=== PATIENT | female | born 1965 | race Caucasian/White ===

== ENCOUNTER 2019-03-23 08:22 | Day surgery (SDC) | payer OTHER ==
[2019-03-17 13:08] VITALS: BMI 23.5
[2019-03-23] MEDS ORDERED: oxyCODONE HCL 5 MG TABLET ONE (09:46)
--- NOTE | 2019-03-23 11:24 | HP ---
History & Physical Update - History History: No Change - Physical Physical: No Change - Assessment Assessment: No Change - Plan Plan: No Change
[2019-03-23] MEDS ORDERED: LIDOCAINE HCL 1% PRESERVATIVE FREE - 30ML VIAL ONE (11:29)
[2019-03-23] MEDS ORDERED: MIDAZOLAM HCL 2 MG/2 ML SINGLE DOSE VIAL ONE (11:33)
[2019-03-23] MEDS ORDERED: BUPIVACAINE HCL/PF 2.5 MG/ML - 30 ML VIAL IJ ONE (11:54)
[2019-03-23] MEDS ORDERED: LIDOCAINE 1%/EPI 1:100000 (20 ML MULTI DOSE VIAL) ONE (11:55)
[2019-03-23] MEDS ORDERED: LIDOCAINE 1%/EPI 1:100000 (20 ML MULTI DOSE VIAL) INF ONE (12:13)
[2019-03-23] MEDS ORDERED: ceFAZolin SODIUM 1 GM VIAL ONE (12:18)
[2019-03-23] MEDS ORDERED: GUM MASTIC/STORAX/MSAL/ALCOHOL 1 DRP DROPSBTL MC ONE (12:32)
[2019-03-23] MEDS ORDERED: BUPIVACAINE HCL/PF 0.25% (2.5MG/ML) 10 ML VIAL IJ ONE (12:47)
[2019-03-23] MEDS ORDERED: ONDANSETRON 4 MG/2 ML VIAL IVPUSH PRN (12:59)
[2019-03-23] MEDS ORDERED: oxyCODONE HCL 5 MG TABLET PO PRN (12:59)
--- NOTE | 2019-03-23 12:59 | OP ---
Operative Note - Note: Operative Date: 03/23/19 Pre-Operative Diagnosis: malfunctioning hardware Operation: replacement of spinal stimulator battery Surgeon: Pasquale Tyler Whip Operator: Tammie Shah Anesthesiologist/OIL LABORATORY ANALYST: Ernesto Trejo Anesthesia: Spinal Estimated Blood Loss (mls): 20 Fluid Volume Replaced (mls): 500 Operative Report Dictated: Yes
[2019-03-23] MEDS ORDERED: LACTATED RINGERS SOLUTION 1,000 ML IV SCH (13:00)
--- NOTE | 2019-03-23 13:00 | SURG ---
Surgery Camp Advisor Note Camp Advisor: Tammie Shah PA-C Date of Service: 03/23/19 Diagnosis: malfunctioning hardware Procedure: replacement of spinal stimulator battery I was present for the entirety of the operative procedure. For further detail, please refer to operative report. Visit type - Case Type Case Type: Scheduled - Emergency Emergency Visit: No - New patient This patient is new to me today: Yes Date on this admission: 03/23/19
[2019-03-23 14:33] VITALS: TEMP 97.7
[2019-03-23 15:08] VITALS: PULSE 60
[2019-03-23 15:55] VITALS: BP 101/68
--- NOTE | 2019-03-23 20:01 | OP ---
DATE OF OPERATION: 03/23/2019 PREOPERATIVE DIAGNOSIS: Painful hardware. POSTOPERATIVE DIAGNOSIS: Painful hardware. PROCEDURE PERFORMED: Removal and revision of spinal cord stimulator. SURGEON: Pasquale Tyler MD CARPENTER SHIP: ASHLEIGH Floyd ESTIMATED BLOOD LOSS: 50 mL. IV FLUID: As per Anesthesia. ANESTHESIA: Spinal. COMPLICATIONS: None. DISPOSITION: The patient was brought to the PACU in stable condition. INDICATION FOR SURGERY: The patient is a 53-year-old female who had a previous spinal cord stimulator. The battery did not work and she wanted revision of the battery. Risks, benefits, and alternatives discussed and the patient consented to surgery. OPERATIVE NOTE: The patient was brought to the operating room by the anesthesia staff. After appropriate patient identification was performed, spinal anesthesia was given. The patient was able to position herself prone onto the OR table. Her back was prepped and draped in a sterile manner. An incision was made over the battery on the right-hand side. Dissection was carried down to the battery. The battery was visualized and it was removed. The wire lead was disconnected from the battery. An slab lifting supervisor was placed onto the wire. This was tested and it was okay. It was attached to a pulse generator and that was tested, it was okay. The pulse generator was placed in the wound. The fascia was closed with 2-0 Vicryl suture, subcutaneous tissue closed with 2-0 Vicryl suture, the skin was closed with 3-0 Monocryl suture. Dermabond was applied, Steri-Strip was applied, sterile dressing was applied. The patient was placed supine on the OR bed, brought to the PACU in stable condition. Jany MANCERA/[id number]
--- NOTE | 2019-03-27 12:17 | PATH ---
Surgical Pathology Report Patient Name: JOHN HOLLY Med. Rec. #: [id number] /Age/Gender: 1965 (Age: 53) / F Account: [id number] Location: [facility] AMBUL[facility]ORY Taken: 03/23/2019 Received: 03/23/2019 Reported: 03/27/2019 Physicians: Pasquale Tyler M.D. Specimen(s) Received EXPLANT FROM PATIENT'S BACK Clinical History Painful hardware Final Diagnosis EXPLANT, BACK: ELECTRONIC EXPLANT, DESCRIBED (GROSS EXAMINATION ONLY). Electronically Signed Lyudmila Ramirez M.D. Gross Description Received fresh labeled "explant from patient's back," is a 5.2 x 5.2 x 0.7 cm pedersen metallic device. The specimen has the following inscription: "Likeability RestoreSensor SureScan MRI SN: [id number]." No soft tissue is present. No sections are submitted, gross only. /03/24/2019 saudi03/24/2019
== END 2019-03-23 15:55 | disposition home or self-care (01) ==
LOC: FASU 08:22
PROVIDERS: ATTEND Orthopaedic Surgery Orthopaedic Surgery of the Spine
PROC: 0JH70MZ Insertion of Stimulator Generator into Back Subcutaneous Tissue and Fascia, Open Approach (ICD-10-PCS; 2019-03-23)
PROC: 0JPT0MZ Removal of Stimulator Generator from Trunk Subcutaneous Tissue and Fascia, Open Approach (ICD-10-PCS; principal; 2019-03-23 12:21)
DX: T85.840A Pain due to nervous system prosthetic devices, implants and grafts, initial encounter (principal); Y75.8 Miscellaneous neurological devices associated with adverse incidents, not elsewhere classified; Y92.9 Unspecified place or not applicable; Y83.8 Other surgical procedures as the cause of abnormal reaction of the patient, or of later complication, without mention of misadventure at the time of the procedure
CPT/HCPCS: 63685; L8679; 84703; 88300-TC; 94760